=== PATIENT | male | born 1975 | race Caucasian/White ===

== ENCOUNTER 2017-10-05 00:31 | Emergency (ER) | payer OTHER ==
[2017-10-05] MEDS ORDERED: FAMOTIDINE 20 MG TABLET PO ONE (01:26)
[2017-10-05] MEDS ORDERED: DIPHENHYDRAMINE HCL 50 MG CAPSULE PO ONE (01:26)
[2017-10-05] MEDS ORDERED: PREDNISONE 20 MG TABLET PO ONE (01:26)
--- NOTE | 2017-10-05 01:30 | ER Document Report ---
ED General - General Chief Complaint: Skin Problem Stated Complaint: SKIN PROBLEM Time Seen by Provider: 10/05/17 01:09 Mode of Arrival: Ambulatory Information source: Patient Notes: 41-year-old male who was started on lisinopril and hydrochlorothiazide 4 days prior presents with complaints of a rash. Patient notes he has had generalized itching rash all throughout his body. Patient denies any fevers or chills denies any nausea vomiting or diarrhea patient does admit that the rash has worsened and did not improve after 1 dose of Benadryl - HPI Onset: Other - 3 day duration Onset/Duration: Persistent Quality of pain: Other - Itching Severity: Moderate Pain Level: 1 Associated symptoms: Other - Itching Exacerbated by: Other Relieved by: Denies Similar symptoms previously: No Recently seen / treated by doctor: Yes - Recently placed on new medications - Related Data Allergies/Adverse Reactions: Bleach (Sodium Hypochlorite) Allergy (Verified 10/05/17 00:33) cocoa butter Allergy (Verified 10/05/17 00:33) Past Medical History - General Information source: Patient, Relative - Social History Smoking Status: Never Smoker Cigarette use (# per day): No Chew tobacco use (# tins/day): No Smoking Education Provided: No Family History: Reviewed & Not Pertinent Review of Systems - Review of Systems Notes: REVIEW OF SYSTEMS: CONSTITUTIONAL : Denies fever, chills, or sweats. Denies recent illness. EENT: Denies eye, ear, throat, or mouth pain or symptoms. Denies nasal or sinus congestion or discharge. Denies throat, tongue, or mouth swelling or difficulty swallowing. CARDIOVASCULAR: Denies chest pain. Denies palpitations or racing or irregular heart beat. Denies ankle edema. RESPIRATORY: Denies cough, cold, or chest congestion. Denies shortness of breath, difficulty breathing, or wheezing. GASTROINTESTINAL: Denies abdominal pain or distention. Denies nausea, vomiting , or diarrhea. Denies blood in vomitus, stools, or per rectum. Denies black, tarry stools. Denies constipation. GENITOURINARY: Denies difficulty urinating, painful urination, burning, frequency, blood in urine, or discharge. MUSCULOSKELETAL: Denies back or neck pain or stiffness. Denies joint pain or swelling. SKIN: Admits to generalized rash HEMATOLOGIC : Denies easy bruising or bleeding. LYMPHATIC: Denies swollen, enlarged glands. NEUROLOGICAL: Denies confusion or altered mental status. Denies passing out or loss of consciousness. Denies dizziness or lightheadedness. Denies headache. Denies weakness or paralysis or loss of use of either side. Denies problems with gait or speech. Denies sensory loss, numbness, or tingling. Denies seizures. PSYCHIATRIC: Denies anxiety or stress. Denies depression, suicidal ideation, or homicidal ideation. ALL OTHER SYSTEMS REVIEWED AND NEGATIVE. Dictation was performed using [employer]fred voice recognition software PHYSICAL EXAMINATION: GENERAL: Well-appearing, well-nourished and in no acute distress. HEAD: Atraumatic, normocephalic. EYES: Pupils equal round and reactive to light, extraocular movements intact, sclera anicteric, conjunctiva are normal. ENT: Nares patent, oropharynx clear without exudates. Moist mucous membranes. NECK: Normal range of motion, supple without lymphadenopathy LUNGS: Breath sounds clear to auscultation bilaterally and equal. No wheezes rales or rhonchi. HEART: Regular rate and rhythm without murmurs ABDOMEN: Soft, nontender, nondistended abdomen. No guarding, no rebound. No masses appreciated. Musculoskeletal: Normal range of motion, no pitting or edema. No cyanosis. NEUROLOGICAL: Cranial nerves grossly intact. Normal speech, normal gait. Normal sensory, motor exams PSYCH: Normal mood, normal affect. SKIN: Generalized urticarial rash all throughout worse on chest abdomen legs no secondary signs of infection no drainage no erythema no warmth no streaking Physical Exam - Vital signs Vitals: Temp Pulse Resp BP Pulse Ox 98.4 F 90 18 132/84 H 97 10/05/17 00:42 10/05/17 00:42 10/05/17 00:42 10/05/17 00:42 10/05/17 00:42 Course - Re-evaluation Re-evalutation: Patient has obvious generalized rash allergic, will be started on Benadryl prednisone Pepcid for the allergic reaction, I will place the patient on amlodipine and Lasix as it is unclear what may have caused allergic reaction since he was started to blood pressure medications at the same time, overall there is no airway component patient otherwise looks well will be discharged home in stable at this time After performing a Medical Screening Examination, I estimate there is LOW risk for AIRWAY COMPROMISE, ANAPHYLAXIS, CELLULITIS, EPIGLOTTIS, or NECROTIZING FASCIITIS, thus I consider the discharge disposition reasonable. Also, there is no evidence or peritonitis, sepsis, or toxicity. I have reevaluated this patient multiple times and no significant life threatening changes are noted. The patient and I have discussed the diagnosis and risks, and we agree with discharging home with close follow-up with the understanding that symptoms and presentations can change. We also discussed returning to the Emergency Department immediately if new or worsening symptoms occur. We have discussed the symptoms which are most concerning (e.g., difficulty breathing or swallowing , fever, changing or worsening pain) that necessitate immediate return. - Vital Signs Vital signs: Temp Pulse Resp BP Pulse Ox 98.4 F 92 20 118/75 97 10/05/17 01:43 10/05/17 01:43 10/05/17 01:43 10/05/17 01:43 10/05/17 01:43 Discharge - Discharge Clinical Impression: Allergic reaction caused by a drug Qualifiers: Encounter type: initial encounter Qualified Code(s): T78.40XA - Allergy, unspecified, initial encounter HTN (hypertension) Qualifiers: Hypertension type: essential hypertension Qualified Code(s): I10 - Essential ( primary) hypertension Condition: Stable Disposition: HOME, SELF-CARE Instructions: Acute Allergic Reaction ([facility]) Additional Instructions: Follow up with your physician tomorrow for further care or return to the ED IMMEDIATELY if symptoms worsen or new concerns occur. If you cannot afford to follow up with your primary care physician a list of low cost clinics have been provided at the end of your discharge papers as well. Prescriptions: Amlodipine Besylate 10 mg PO DAILY #30 tab Famotidine [Pepcid 20 mg Tablet] 20 mg PO DAILY #5 tablet Furosemide [Lasix 20 mg Tablet] 20 mg PO QAM #30 tablet Prednisone [Deltasone 20 mg Tablet] 3 tab PO DAILY 5 Days tablet
[2017-10-05 01:49] VITALS: BP 118/75
== END 2017-10-05 01:59 | disposition home or self-care (01) ==
LOC: ER 00:31
DX: L50.0 Allergic urticaria (principal); T50.905A Adverse effect of unspecified drugs, medicaments and biological substances, initial encounter; I10 Essential (primary) hypertension; Z91.048 Other nonmedicinal substance allergy status
CPT/HCPCS: 99283; J7512